=== PATIENT | male | born 1960 | race Caucasian/White ===

== ENCOUNTER 2021-01-01 07:39 | Inpatient (IN) | payer OTHER ==
[2020-12-26 15:26] LABS: Mean Corpuscular HGB Conc 35 % (32-34); Mean Corpuscular Volume 88 fl (84-94); Platelet Count 142 K/mm3 (140-440); Red Blood Count 4.87 M/mm3 (3.65-5.03); Red Cell Distribution Width 13.6 % (13.2-15.2)
--- NOTE | 2020-12-26 15:27 | Anesthesia Consultation ---
Anesthesia Consult and Med Hx Date of service: 01/01/21 - Airway Anesthetic Teeth Evaluation: Good ROM Head & Neck: Adequate Mental/Hyoid Distance: Adequate Mallampati Class: Class I Intubation Access Assessment: Probably Good - Pulmonary Exam CTA: Yes - Cardiac Exam Cardiac Exam: RRR - Pre-Operative Health Status ASA Pre-Surgery Classification: ASA2 Proposed Anesthetic Plan: General, Epidural Nerve Block: Adductor canal - Pre-Anesthesia Comment Pre-Anesthesia Comments: Discussed risks/benefits of GA vs epidural. Patient has no preference. - Pulmonary Hx Smoking: No Hx Respiratory Symptoms: No - Cardiovascular System Hx Hypertension: Yes Hx Heart Attack/AMI: No Hx Percutaneous Transluminal Coronary Angioplasty (PTCA): No Hx Cardia Arrhythmia: No - Central Nervous System CVA: No - Endocrine Hx Renal Disease: No Hx Liver Disease: No Hx Insulin Dependent Diabetes: Yes Hx Thyroid Disease: No - Other Systems Hx Obesity: No - Additional Comments Anesthesia Medical History Comments: States fasting glucose is typically 140s- 150s on current insulin regimen. Advised to take ~half (30u) usual nightime insulin dose night before and to hold morning insulin dose day of surgery.
[2020-12-26 15:53] LABS: Calcium 8.9 mg/dL (8.4-10.2)
--- NOTE | 2020-12-26 16:20 | XRay Report ---
Right knee 2 views INDICATION: Knee replacement FINDINGS: Severe tricompartmental degenerative change within the knee. There is severe joint space na rrowing throughout most significant in the lateral compartment. Large osteophytes are seen along the margins. Joint effusion is noted. IMPRESSION: Severe tricompartmental degenerative change. Signer Name: Hemant Joya MD Signed: 12/26/2020 4:16 PM Workstation Name: [id number]
[~2021-01-01 07:39] MED LIST: ACETAMINOPHEN 500 MG TAB PO SCH; BUPIVACAINE/PF (0.5%) 5 MG/1 ML 30 ML VIAL INFILTRATI ONE; CELECOXIB 200 MG CAP PO NR; GABAPENTIN 300 MG CAP PO NR; KETOROLAC 30 MG/1 ML INJ IV ONE; LACTATED RINGERS 1,000 ML IV SCH; MIDAZOLAM 2 MG/2 ML INJ IV NR; SODIUM CHLORIDE 0.9% 100 ML IVPB IV ONE; SODIUM CHLORIDE 0.9% IRRIG SOLN 2000 ML IR ONE; ceFAZolin/STERILE WATER 2 GM/20 ML SYRINGE IV NR; fentaNYL 100 MCG/2 ML INJ IV PRN
[2021-01-01] MEDS ORDERED: BUPIVACAINE/PF (0.25%) 2.5 MG/ML 30 ML VIAL INFILTRATI ONE (12:58)
[2021-01-01] MEDS ORDERED: HYDROmorphone 1 MG/1 ML INJ IV PRN ×2 (13:17)
[2021-01-01] MEDS ORDERED: ONDANSETRON 4 MG/2 ML INJ IV PRN (13:17)
--- NOTE | 2021-01-01 13:17 | Anesthesia Day of Surgery ---
Anesthesia Day of Surgery - Day of Surgery Patient Examined: Yes Patient H&P Reviewed: Yes Patient is NPO: Yes
[2021-01-01] MEDS ORDERED: fentaNYL 100 MCG/2 ML INJ ONE (13:45)
[2021-01-01] MEDS ORDERED: propofoL 200 MG/20 ML VIAL IV ONE (13:45)
[2021-01-01] MEDS ORDERED: KETOROLAC 30 MG/1 ML INJ ONE (13:51)
[2021-01-01] MEDS ORDERED: BUPIVACAINE/PF (0.5%) 5 MG/1 ML 30 ML VIAL INFILTRATI ONE ×2 (13:51→17:34)
[2021-01-01] MEDS ORDERED: TRANEXAMIC ACID 1,000 MG/10 ML ONE (13:51)
[2021-01-01] MEDS ORDERED: SODIUM CHLORIDE 0.9% 100 ML ONE (13:52)
[2021-01-01] MEDS ORDERED: ePHEDrine SULFATE 50 MG/1 ML INJ ONE ×2 (15:19→15:47)
[2021-01-01] MEDS ORDERED: HYDROmorphone 1 MG/1 ML INJ ONE ×2 (15:39)
[2021-01-01] MEDS ORDERED: SUCCINYLCHOLINE CHLORIDE 200 MG/10 ML INJ MDV ONE (17:00)
[2021-01-01] MEDS ORDERED: LIDOCAINE MPF (2%) 20 MG/1 ML VIAL 5 ML ONE (17:00)
[2021-01-01] MEDS ORDERED: ROCURONIUM 50 MG/5 ML INJ IV ONE (17:00)
[2021-01-01] MEDS ORDERED: SODIUM CHLORIDE 0.9% IRRIG SOLN 2000 ML IR ONE (17:12)
[2021-01-01] MEDS ORDERED: KETOROLAC 30 MG/1 ML INJ IV ONE (17:34)
[2021-01-01] MEDS ORDERED: SODIUM CHLORIDE 0.9% 100 ML IVPB IV ONE (17:34)
[2021-01-01] MEDS ORDERED: NEOSTIGMINE 10MG/10 ML INJ MDV ONE (17:36)
[2021-01-01] MEDS ORDERED: GLYCOPYRROLATE 0.4 MG/2 ML INJ ONE (17:36)
[2021-01-01] MEDS ORDERED: ONDANSETRON 4 MG/2 ML INJ ONE (17:36)
[2021-01-01] MEDS ORDERED: hydrALAZINE 20 MG/1 ML INJ ONE (17:45)
[2021-01-01] MEDS ORDERED: oxyCODONE /ACETAMINOPHEN 5-325MG TAB PO PRN (18:01)
[2021-01-01] MEDS ORDERED: IBUPROFEN 800 MG TAB PO PRN (18:01)
--- NOTE | 2021-01-01 18:15 | Procedure Note ---
Date of procedure: 01/01/21 Pre-op diagnosis: Severe arthritis right knee Post-op diagnosis: same Procedure: [Right] total knee replacement Procedure The patient was brought to the OR after being given a obturator nerve block and preoperative holding he was placed on the OR table supine position following induction elevation of anesthesia the patient is [right] lower extremity was prepped and draped in the usual sterile manner. A timeout procedure was done to identify the patient in the correct operative site. The leg was exsanguinated followed by inflation of the pneumatic tourniquet to 300 mmHg. A midline incision was made over the patella was taken down distally towards the tibial tubercle next the medial retinaculum was incised and the patella was inverted examination of the patient's knee joint revealed typical osteoarthritic changes with large bone spurs noted primarily in the medial compartment both the femoral and tibial's articular surfaces exhibited bare bone and large peripheral osteophytes next a large drill bit was used to enter the medullary canal this was followed by placement of the distal femoral cutting Jig the distal femur was resected approximately 8-9 mm of bone was removed at this time. Attention was turned to the patient's proximal tibia using a external alignme guide the bone was cut using the medial surface as the low point of care was taken to protect the medial collateral ligaments the tibial articular surface was 7-sized A3 a #4 tibial based ray was selected this was followed by placement of the fixation hole or keel into the proximal tibial artery medullary canal. Attention was turned to the distal femur and using a 4 and 1 cutting block a +4 component was selected AP anterior and posterior as well as Azul cuts were made a +4 tibial ostomy femoral component was placed and the knee was then taken to a range of motion she appeared to have stability in both the flexion and extension FOLLOWING this the trial components were removed the knee was then copiously irrigated any remaining soft tissue and bony debris were removed at this time next the cement was next and following this the tibial components were inserted beginning with the based ray followed by the polyethylene insert The femoral component was added the excess were removed the knee was held in extension until the cement hardened following hardening of cement the knee was then brought back into of flexion any remaining soft tissue and bony debris were removed at this time. The wound again was irrigated and was closed in a standard routine fashion. Dressings were applied the patient tolerated the procedure there were no complications she was then taken to post anesthesia recovery Anesthesia: MAC, regional Surgeon: YO SPENCER (Rain Tomas, 1st assist) Estimated blood loss: 50-100ml Pathology: list (bone and cartilage from right knee) Specimen disposition: to lab Condition: stable Disposition: PACU
--- NOTE | 2021-01-01 20:32 | XRay Report ---
Right knee-2 views INDICATION: post op tkr. COMPARISON: None. IMPRESSION: Total knee arthroplasty placement with satisfactory alignment and no immediate complicati on. Signer Name: Arvind Winkler MD Signed: 01/01/2021 8:27 PM Workstation Name: [id number]
--- NOTE | 2021-01-01 21:29 | Post Anesthesia Evaluation ---
- Post Anesthesia Evaluation Patient Participated: Yes Airway Patent: Yes Stable Respiratory Function: Yes Nausea/Vomiting: No Temp > 96.8F: Yes Pain Manageable: Yes Adequeate Hydration: Yes Anesthesia Complications: No Block Receding Appropriately: Yes Patient on Ventilator: No
[2021-01-01] MEDS: MORPHINE 4 MG/1 ML INJ IV PRN (23:43)
--- OUTSIDE RECORDS SUMMARY | 2021-01-02 09:46 | External Medical Summary ---
:1960 Author Organization [facility] Address [address] [place] [address] Care Team Providers Name Role Phone WalterDaniel Unavailable [phone] PROBLEMS Type Condition ICD9-CM [id number] Onset Condition W/U Status Risk SNOM ED Notes Code Code Dates Status Code Problem Unilateral M17.11 Active confirmed [id number] primary osteoarthrit is, right knee ALLERGIES No Known Allergies ENCOUNTERS from 1960 to 2020-12-29 Encounter Location Date Provider Diagnosis [facility] [address] [facility] Oct, Daniel Watson Unila terks primary [facility] level of [facility] oste oarthritis, right [place], [place] knee M17.11 [id number] IMMUNIZATIONS No Information SOCIAL HISTORY Tobacco Use: Social History Observation Description Date Details (start date - stop date) Never Smoker Sex Assigned At : Social History Observation Description Sex Assigned At Unknown Smoking Question Answer Notes Are you a: never smoker REASON FOR REFERRAL from 1960 to 2020-12-29 Diagnosis 1 Unilateral primary osteoarth ritis, right knee (M17.11) Referral Organization [facility] Referring Provider First Name Daniel Referring Provider Last Name Walter Referring Provider Specialty Orthopedic Surgery Referred Provider [facility], - Referral Priority Routine VITAL SIGNS Height 71 in Oct, Weight 248 lbs Oct, Temperature 97.7 degrees Fahrenheit Oct, BMI 34.59 kg/m2 Oct, Blood pressure systolic 187 mm Hg Oct, Blood pressure diastolic 99 mm Hg Oct, MEDICATIONS Medication SIG (Take, Route, Notes Start Date End Date Status Frequency, Duration) Insulin Regular Human Act joshua Tylenol/codeine #3 #30 one tablet orally every Oct, Active 300-30 mg 4-6 hours prn pain Blood Pressure Active Diclofenac Sodium 75 MG 1 tablet Orally Twice a Oct, 6 Jan, 2021 Active day for 30 day(s) PROCEDURES No Information RESULTS No Results REASON FOR VISIT Rt Knee Pain/ Bone on Bone MEDICAL (GENERAL) HISTORY Type Description Date Medical History diabetes Medical History htn Medical History cholesterol Surgical History right knee 1983 & 1997 Goals Section No Information Health Concerns No Information MEDICAL EQUIPMENT No Information MENTAL STATUS No Information FUNCTIONAL STATUS No Information ASSESSMENTS Encounter Date Diagnosis Assessment Notes Treatment Notes Treatm ent Clinical Notes Oct, Unilateral Discussed treatment primary options with the osteoarthritis, patient based on his right knee history and physical (ICD-10 - M17.11) exam, I suspect patient has significant osteoarthritis involving the right knee therefore I have ordered a x-ray take to be taken and if patient has significant radiographic evidence of osteoarthritis a total knee replacement would be advisable PLAN OF TREATMENT Medication Medication Name Sig Start Date Stop Date Diclofenac Sodium 75 MG 1 tablet Orally Twice a day Oct, Jan, for 30 day(s) Tylenol/codeine #3 #30 300-30 mg one tablet orally every 4-6 Oct, hours prn pain Treatment Notes Assessment Notes Clinical Notes Unilateral primary Discussed treatment options with the osteoarthritis, right knee patient based on his history and physical exam, I suspect patient has significant osteoarthritis involving the right knee therefore I have ordered a x-ray take to be taken and if patient has significant radiographic evidence of osteoarthritis a total knee replacement would be advisable Treatment Notes Test Name Order Date X ray : Knee, right 2 views 2020-11-03 Referrals Referral Date Details Next Appt Details Provider Name:Daniel Watson, 2021-01-01 12:30:00 AM, [address] [facility], [facility] level [place], [place], [phone], Insurance Providers Payer Name Payer Address Payer Insured Patient Coverage Cover age Phone Name Relationship to Start Date End Date Insured MIKAEL [phone] Tunde Lozada [place] [id number] Health Plan [id number]
[2021-01-02] MEDS: ENOXAPARIN 40 MG/0.4 ML INJ SUB-Q SCH (10:36)
--- NOTE | 2021-01-02 13:44 | Progress Note ---
Assessment and Plan s/p right TkR doing well hopefully dc to home soon Subjective Date of service: 01/02/21 Interval history: no c/o noted, started PT earlier... Objective Vital signs: Vital Signs - 12hr 01/02/21 01/02/21 01/02/21 04:40 07:57 09:05 Temperature 98.1 F 99.5 F Pulse Rate 86 82 Respiratory 20 16 Rate Blood Pressure 136/77 137/81 O2 Sat by Pulse 95 93 94 Oximetry 01/02/21 11:50 Temperature 98.6 F Pulse Rate 91 H Respiratory 16 Rate Blood Pressure 129/77 O2 Sat by Pulse 93 Oximetry Incision: draining Weight bearing status: as tolerated - Labs CBC & BMP: 12/26/20 14:55 12/26/20 14:55 Labs: Abnormal lab results 01/01/21 01/01/21 01/01/21 Range/Units 12:23 18:39 23:28 POC Glucose 110 H 138 H 176 H (70-105) mg/dL 01/02/21 01/02/21 Range/Units 07:59 11:51 POC Glucose 180 H 203 H (70-105) mg/dL
[2021-01-02] MEDS: MORPHINE 4 MG/1 ML INJ IV PRN (16:35)
--- NOTE | 2021-01-02 22:23 | Consultation ---
History of Present Illness - Reason for Consult Consult date: 01/02/21 Medical management Requesting physician: YO SPENCER - History of Present Illness S/p right TKA. Postop patient doing well Past History Past Medical History: diabetes (Insulin-dependent diabetes), hypertension, hyperlipidemia Past Surgical History: total knee replacement (Right TKA) Social history: lives with family Family history: hypertension Medications and Allergies Allergies Allergy/AdvReac Type Severity Reaction Status Date / Time No Known Allergies Allergy Verified 12/26/20 15:31 Home Medications Medication Instructions Recorded Confirmed Last Taken Type Atenolol [Tenormin] 100 mg PO DAILY 12/26/20 01/01/21 01/01/21 09:30 History Chlorthalidone [Thalitone] 25 mg PO QDAY 12/26/20 12/26/20 12/31/20 History Insulin NPH/Regular [Novolin 70/30] 65 unit SQ BID 12/26/20 01/01/21 12/31/20 History Losartan [Cozaar] 100 mg PO QDAY 12/26/20 12/26/20 12/31/20 History Simvastatin 80 mg PO DAILY 12/26/20 12/26/20 12/31/20 History amLODIPine [Norvasc] 10 mg PO DAILY 12/26/20 12/26/20 12/31/20 History Apixaban [Eliquis] 5 mg PO DAILY #30 tablet 01/02/21 Unknown Rx Oxycodone HCl/Acetaminophen 1 each PO Q6HR PRN #30 tablet 01/02/21 Unknown Rx [Percocet 10/325 mg] Active Meds: Active Medications Enoxaparin Sodium (Enoxaparin 40 Mg/0.4 Ml Inj) 40 mg SUB-Q QDAY JULIO CESAR Last Admin: 01/02/21 10:36 Dose: Not Given Documented by: Ibuprofen (Ibuprofen 800 Mg Tab) 800 mg PO Q8H PRN PRN Reason: Pain, Mild (1-3) Ketorolac Tromethamine (Ketorolac 30 Mg/1 Ml Inj) 15 mg IV Q6H PRN PRN Reason: Pain, Mild (1-3) Stop: 01/06/21 18:00 Morphine Sulfate (Morphine 4 Mg/1 Ml Inj) 4 mg IV Q4H PRN PRN Reason: Pain , Severe (7-10) Last Admin: 01/02/21 16:35 Dose: 4 mg Documented by: Oxycodone/Acetaminophen (Oxycodone /Acetaminophen 5-325mg Tab) 1 tab PO Q6H PRN PRN Reason: Pain, Moderate (4-6) Last Admin: 01/02/21 18:10 Dose: 1 tab Documented by: Sodium Chloride (Sodium Chloride 0.9% 10 Ml Flush Syringe) 10 ml IV PRN JULIO CESAR Review of Systems All systems: negative Exam - Constitutional Vitals: Temp Pulse Resp BP Pulse Ox 100.5 F H 109 H 17 152/84 94 01/02/21 19:07 01/02/21 19:07 01/02/21 22:00 01/02/21 19:07 01/02/21 21:35 General appearance: Present: no acute distress, well-nourished - EENT Eyes: Present: PERRL ENT: hearing intact, clear oral mucosa - Neck Neck: Present: supple, normal ROM - Respiratory Respiratory effort: normal Respiratory: bilateral: CTA - Cardiovascular Heart rate: 78 Rhythm: regular Heart Sounds: Present: S1 & S2. Absent: rub, click - Extremities Extremities: pulses symmetrical, No edema Peripheral Pulses: within normal limits - Abdominal General gastrointestinal: Present: soft, non-tender, non-distended, normal bowel sounds Male genitourinary: Present: normal - Rectal Rectal Exam: deferred - Integumentary Integumentary: Present: clear, warm, dry - Musculoskeletal Musculoskeletal: gait normal, strength equal bilaterally - Psychiatric Psychiatric: appropriate mood/affect, intact judgment & insight - Neurologic Neurologic: CNII-XII intact, moves all extremities - Allied Health Allied health notes reviewed: nursing, case management Results - Labs CBC & Chem 7: 01/03/21 04:45 01/03/21 04:45 Labs: Abnormal lab results 01/01/21 01/01/21 01/02/21 Range/Units 18:39 23:28 07:59 POC Glucose 138 H 176 H 180 H (70-105) mg/dL 01/02/21 01/02/21 Range/Units 11:51 16:09 POC Glucose 203 H 262 H (70-105) mg/dL Assessment and Plan - Patient Problems (1) S/P total knee arthroplasty Status: Acute Qualifiers: Laterality: right Qualified Code(s): Z96.651 - Presence of right artificial knee joint Plan to address problem: Postop patient doing well Patient will discharge tomorrow (2) IDDM (insulin dependent diabetes mellitus) Status: Chronic Plan to address problem: Continue insulin and coverage (3) Hypertension Status: Chronic Qualifiers: Hypertension type: essential hypertension Qualified Code(s): I10 - Essential (primary) hypertension Plan to address problem: Continue antihypertensives and manage blood pressure and change medications if necessary (4) Hyperlipidemia Status: Chronic Qualifiers: Hyperlipidemia type: mixed hyperlipidemia Qualified Code(s): E78.2 - Mixed hyperlipidemia Plan to address problem: Continue statins (5) DVT prophylaxis Status: Acute Plan to address problem: Patient to be discharged on Eliquis for 30 days
[2021-01-02] MEDS ORDERED: hydrALAZINE 20 MG/1 ML INJ IV ONE (23:36)
[2021-01-03] MEDS: KETOROLAC 30 MG/1 ML INJ IV PRN ×2 (00:07→12:09)
[2021-01-03 05:07] LABS: Basophils % (Auto) 0.3 % (0.0-1.8); Eosinophils % (Auto) 0.4 % (0.0-4.3); Hematocrit 33.4 % (35.5-45.6); Hemoglobin 11.4 gm/dl (11.8-15.2); Lymphocytes # (Auto) 0.9 K/mm3 (1.2-5.4); Lymphocytes % (Auto) 11.5 % (13.4-35.0); Mean Corpuscular HGB Conc 34 % (32-34); Mean Corpuscular Volume 89 fl (84-94); Monocytes # (Auto) 0.8 K/mm3 (0.0-0.8); Monocytes % (Auto) 9.5 % (0.0-7.3); Red Blood Count 3.76 M/mm3 (3.65-5.03); Red Cell Distribution Width 13.2 % (13.2-15.2)
[2021-01-03 05:14] LABS: Platelet Count 90 K/mm3 (140-440)
[2021-01-03 05:29] LABS: Albumin 3.3 g/dL (3.9-5); Calcium 7.9 mg/dL (8.4-10.2)
[2021-01-03] MEDS ORDERED: INSULIN LISPRO 100 UNIT/ML SUB-Q SCH (07:30)
[2021-01-03] MEDS ORDERED: NON-FORMULARY EACH (Losartan [Cozaar] 100 MG Tablet) PO SCH (08:00)
[2021-01-03] MEDS ORDERED: INSULIN NPH/REGULAR 70/30 INJ SUB-Q SCH (08:00)
[2021-01-03] MEDS ORDERED: LOSARTAN 50 MG TAB PO SCH (08:00)
[2021-01-03] MEDS ORDERED: CHLORTHALIDONE 25 MG TAB PO SCH (08:00)
[2021-01-03] MEDS: ENOXAPARIN 40 MG/0.4 ML INJ SUB-Q SCH (08:05)
[2021-01-03] MEDS ORDERED: amLODIPine 10 MG TAB PO SCH (10:00)
[2021-01-03] MEDS ORDERED: NON-FORMULARY EACH (Atenolol [Tenormin] 100 MG Tablet) PO SCH (10:00)
[2021-01-03] MEDS ORDERED: SIMVASTATIN 80 MG PO SCH (10:00)
[2021-01-03] MEDS ORDERED: atenoloL 50 MG TAB PO SCH (10:00)
--- NOTE | 2021-01-03 10:53 | Discharge Summary ---
Providers - Providers Date of Admission: 01/01/21 10:25 Date of discharge: 01/03/21 Attending physician: YO SPENCER MD 01/01/21 18:08 Physical Therapy Evaluation and Treat [CONS] Routine Comment: Reason For Exam: post op evaluation Weight bearing status?: Full wt bearing Assistive devices?: Yes If so list: Walker 01/02/21 21:11 Consult to Physician [CONS] Urgent Comment: Consulting Provider: CHARMAINE SILVER Physician Instructions: Reason For Exam: medical management Primary care physician: KENDRICK JENSEN MD Hospitalization Condition: Stable Procedures: Right total knee replacement Hospital course: 60-year-old male with a long history of right knee pain swelling and stiffness since an injury as a teenager plain x-rays taken preoperatively show significant osteoarthritis. Patient was admitted to the hospital and was taken to the operating room where a right total knee replacement was done without complications. Postoperatively he was seen and evaluated by physical therapy where he was given instructions on gait weightbearing and range of motion exercises Case management services were also consulted for home physical therapy rehab as well as DME's. Disposition: DC/- HOME UNDER HOME [facility] Final Discharge Diagnosis (Prints w/discharge instructions): Severe arthritis right knee status post right total knee replacement Core Measure Documentation - Palliative Care Palliative Care/ Comfort Measures: Not Applicable - Core Measures Any of the following diagnoses?: none - VTE Discharge Requirements Deep Vein Thrombosis/Pulmonary Embolism Present on Admission: No Has pt received <5 days of overlap therapy or INR<2.0: Yes Anticoagulant overlap therapy prescribed at discharge: Yes Contraindication No Overlap Therapy order at DC: Medical Contraindication - Acute [place] Discharge Requirements Aspirin at discharge: No Reason for no aspirin on DC: Medical contraindication - Heart Failure Discharge Requirements ANDRES/ARB for LVSD if EF <40%: Not Applicable - Stroke Discharge Requirements Statin for LDL = or >70 mg/dl on DC: Not Applicable Reason for no statin on DC: Medical Contraindication Reason for no anticoag for AF/F on DC: Medical Contraindication Exam - Constitutional Vitals: Temp Pulse Resp BP Pulse Ox 99.4 F 101 H 17 155/88 94 01/03/21 07:26 01/03/21 10:27 01/03/21 07:49 01/03/21 10:27 01/03/21 07:41 General appearance: Present: no acute distress, well-nourished - EENT Eyes: Present: PERRL ENT: hearing intact, clear oral mucosa - Neck Neck: Present: supple, normal ROM - Respiratory Respiratory effort: normal Respiratory: bilateral: CTA - Cardiovascular Heart Sounds: Present: S1 & S2. Absent: rub, click - Extremities Extremities: pulses symmetrical, No edema Peripheral Pulses: within normal limits - Abdominal General gastrointestinal: Present: soft, non-tender, non-distended, normal bowel sounds Male genitourinary: Present: normal - Integumentary Integumentary: Present: clear, warm, dry - Musculoskeletal Musculoskeletal: gait normal, strength equal bilaterally - Psychiatric Psychiatric: appropriate mood/affect, intact judgment & insight - Neurologic Neurologic: CNII-XII intact, moves all extremities Plan Activity: advance as tolerated Weight Bearing Status: Weight Bear as Tolerated Diet: low carbohydrate Wound: keep clean and dry Special Instructions: physical therapy Durable Medical Equipment Needed Upon Discharge: Walker-Standard, Bedside Commode Follow up with: KENDRICK JENSEN MD [Primary Care Provider] - 7 Days Prescriptions: Apixaban [Eliquis] 5 mg PO DAILY #30 tablet Oxycodone HCl/Acetaminophen [Percocet 10/325 mg] 1 each PO Q6HR PRN #30 tablet PRN Reason: Pain
[2021-01-03 11:35] VITALS: BP 159/93
== END 2021-01-03 16:26 | disposition home health service (06) | DRG 470 ==
LOC: 3A 10:25 → 3B 18:24
PROVIDERS: ADMIT Orthopaedic Surgery; ATTEND Orthopaedic Surgery
PROC: 0SRC0J9 Replacement of Right Knee Joint with Synthetic Substitute, Cemented, Open Approach (ICD-10-PCS; principal; 2021-01-01)
DX: M17.11 Unilateral primary osteoarthritis, right knee (principal); E11.9 Type 2 diabetes mellitus without complications; I10 Essential (primary) hypertension; E78.2 Mixed hyperlipidemia; Z20.822 Contact with and (suspected) exposure to COVID-19; Z79.4 Long term (current) use of insulin; Z79.899 Other long term (current) drug therapy; Z82.49 Family history of ischemic heart disease and other diseases of the circulatory system
CPT/HCPCS: 36415; 64450; 80048; 80053; 82962; 83036; 85025; 85027; 88304; 88309; 88311; G0378; C1776; J0330; J0360; J1170; J1650; J1815; J1885; J2250; J2270; J2405; J2704; J2710; J3010; J7120; U0003